=== PATIENT | female | born 1955 | race Caucasian/White ===

== ENCOUNTER 2021-08-19 16:20 | Emergency (ER) | payer OTHER ==
--- NOTE | 2021-08-19 16:56 | ED Physician Documentation ---
PD HPI FOCAL NEURO - Stated complaint Stated Complaint: HILLMAN/TINGLE IN HANDS - Chief complaint Chief Complaint: Neuro - History obtained from History obtained from: Patient - Additional information Additional information: 66-year-old woman who has hypertension and hypercholesterolemia, hypothyroidism and history of migraines started to feel like her legs were numb and she could not coordinate anything at around 11 AM this morning. Subsequently developed slurred speech, some word finding difficulties, a combination of vertigo and disequilibrium and could not walk. It is followed by headache although certainly not the worst of her life. Feeling better but not resolved now. Recently had an episode of diplopia in December of last year and subsequently had a work-up and was found to have what I presume was a PFO based on her description. Review of Systems Ten Systems: 10 systems reviewed and negative Constitutional: denies: Fever, Chills Nose: denies: Rhinorrhea / runny nose Cardiac: denies: Chest pain / pressure, Palpitations Respiratory: denies: Dyspnea, Cough PD PAST MEDICAL HISTORY - Present Medications Home Medications: Ambulatory Orders Medication Instructions Recorded Confirmed Levothyroxine [Synthroid] 25 mcg PO DAILY 08/20/21 08/20/21 Pravastatin [Pravachol] 10 mg PO DAILY 08/20/21 08/20/21 Rivaroxaban [Xarelto] 20 mg PO DAILY #30 tablet 08/20/21 - Allergies Allergies/Adverse Reactions: Allergies Allergy/AdvReac Type Severity Reaction Status Date / Time amoxicillin [From Augmentin] Allergy Unknown Verified 08/19/21 16:33 clavulanic acid Allergy Unknown Verified 08/19/21 16:33 [From Augmentin] iodine Allergy Unknown Verified 08/19/21 16:33 metronidazole [From Flagyl] Allergy Unknown Verified 08/19/21 16:33 PD ED PE NORMAL - Vitals Vital signs reviewed: Yes - General General: Alert and oriented X 3, No acute distress - HEENT HEENT: PERRL, EOMI - Neck Neck: Supple, no meningeal sign, No bony TTP - Cardiac Cardiac: RRR, No murmur - Respiratory Respiratory: No respiratory distress, Clear bilaterally - Abdomen Abdomen: Soft, Non tender - Back Back: No CVA TTP, No spinal TTP - Derm Derm: Normal color, Warm and dry - Extremities Extremities: No deformity, No tenderness to palpate, No edema, No calf tenderness / cord - Neuro Neuro: Alert and oriented X 3, No motor deficit, No sensory deficit, Normal speech, Other (NIHSS zero) Eye Opening: Spontaneous Motor: Obeys Commands Verbal: Oriented GCS Score: 15 - Psych Psych: Normal mood, Normal affect Results - Vitals Vitals: Vital Signs - 24 hr 08/19/21 08/19/21 08/19/21 16:26 18:32 20:03 Temperature 37 C Heart Rate 83 79 71 Respiratory 17 16 14 Rate Blood Pressure 148/91 H 144/90 H 154/98 H O2 Saturation 97 99 98 08/19/21 08/20/21 08/20/21 22:00 00:00 02:00 Temperature 36.9 C Heart Rate 82 70 68 Respiratory 20 17 15 Rate Blood Pressure 148/88 H 144/85 H 116/67 O2 Saturation 97 96 96 08/20/21 08/20/21 08/20/21 04:00 06:00 08:57 Temperature Heart Rate 64 65 72 Respiratory 20 14 22 Rate Blood Pressure 96/58 L 119/87 H 139/88 H O2 Saturation 98 96 99 08/20/21 10:00 Temperature Heart Rate 77 Respiratory 17 Rate Blood Pressure 129/94 H O2 Saturation 95 Oxygen O2 Source Room air - EKG (time done) 1702 Rate: Rate (enter#) (74) Rhythm: NSR [place]: Normal Intervals: RBBB QRS: Normal Ischemia: Normal ST segments. No: ST elevation c/w ischemia, ST depression Compare to prior EKG: Old EKG unavailable Computer interpretation: Agree with computer - Labs Labs: Laboratory Tests 08/19/21 08/19/21 08/19/21 16:58 16:59 16:59 WBC 7.5 RBC 4.11 L Hgb 13.2 Hct 40.0 MCV 97.3 MCH 32.1 H MCHC 33.0 RDW 13.7 Plt Count 200 MPV 11.0 H Neut # (Auto) 4.7 Lymph # (Auto) 2.2 [place] # (Auto) 0.6 Eos # (Auto) 0.1 Baso # (Auto) 0.0 Absolute Nucleated RBC 0.00 Nucleated RBC % 0.0 PT 10.9 INR 1.0 Sodium Potassium Chloride Carbon Dioxide Anion Gap BUN Creatinine Estimated GFR (MDRD) Glucose POC Whole Bld Glucose 133 H Calcium Nasal Adenovirus (PCR) Nasal B. parapertussis DNA (PCR) Nasal Coronavir 229E PCR Nasal Coronavir HKU1 PCR Nasal Coronavir NL63 PCR Nasal Coronavir OC43 PCR Nasal Enterovir/Rhinovir PCR Nasal Influenza B PCR Nasal Influenza A PCR Nasal Parainfluen 1 PCR Nasal Parainfluen 2 PCR Nasal Parainfluen 3 PCR Nasal Parainfluen 4 PCR Nasal RSV (PCR) Nasal B.pertussis DNA PCR Nasal C.pneumoniae (PCR) Vin Human Metapneumo PCR Nasal M.pneumoniae (PCR) Nasal SARS-CoV-2 (PCR) 08/19/21 08/19/21 18:51 21:00 WBC RBC Hgb Hct MCV MCH MCHC RDW Plt Count MPV Neut # (Auto) Lymph # (Auto) [place] # (Auto) Eos # (Auto) Baso # (Auto) Absolute Nucleated RBC Nucleated RBC % PT INR Sodium 138 Potassium 3.7 Chloride 104 Carbon Dioxide 27 Anion Gap 7.0 BUN 15 Creatinine 0.6 Estimated GFR (MDRD) 101 Glucose 107 H POC Whole Bld Glucose Calcium 8.8 Nasal Adenovirus (PCR) NOT DETECTED Nasal B. parapertussis DNA (PCR) NOT DETECTED Nasal Coronavir 229E PCR NOT DETECTED Nasal Coronavir HKU1 PCR NOT DETECTED Nasal Coronavir NL63 PCR NOT DETECTED Nasal Coronavir OC43 PCR NOT DETECTED Nasal Enterovir/Rhinovir PCR NOT DETECTED Nasal Influenza B PCR NOT DETECTED Nasal Influenza A PCR NOT DETECTED Nasal Parainfluen 1 PCR NOT DETECTED Nasal Parainfluen 2 PCR NOT DETECTED Nasal Parainfluen 3 PCR NOT DETECTED Nasal Parainfluen 4 PCR NOT DETECTED Nasal RSV (PCR) NOT DETECTED Nasal B.pertussis DNA PCR NOT DETECTED Nasal C.pneumoniae (PCR) NOT DETECTED Vin Human Metapneumo PCR NOT DETECTED Nasal M.pneumoniae (PCR) NOT DETECTED Nasal SARS-CoV-2 (PCR) NOT DETECTED - Rads (name of study) CTA Head/neck Radiology: EMP read contemporaneously (NAD) PD MEDICAL DECISION MAKING - ED course ED course: 66-year-old woman with risk factors for thromboembolic disease/stroke including hypertension and hyperlipidemia as well as a PFO presents with symptoms that are concerning for a posterior CVA. She presents outside of the window for consideration for thrombolytics. CT angiography of the head and neck were negative. She her symptoms improved but did not go away while in the emergency department and I called for admission for observation for MRI but was notified that the hospital is full. Unfortunately all of the other hospitals in [facility] also apparently full so unfortunately she will board in the emergency department pending an MRI in the morning. Update: 1:21 PM August 20. MRI done showing some white matter changes and volume loss but no acute lesions. She still mildly symptomatic but wonders if that might have just been from standing the night in the emergency department. My partner had spoken with her loading supervisor before my shift started who recommended starting aspirin and a DOAC given the known PFO pending follow-up. It sounds like he is planning to refer her to someone for consideration for PFO closure. Departure - Departure Disposition: 01 Home, Self Care Clinical Impression: TIA (transient ischemic attack), PFO (patent foramen ovale) Condition: Good Record reviewed to determine appropriate education?: Yes Instructions: ED Transient Ischemic Attack Prescriptions: Rivaroxaban [Xarelto] 20 mg PO DAILY #30 tablet Comments: Take a baby aspirin a day and follow-up with your loading supervisor. As discussed he is considering referring you for a closure of your PFO. I sent your prescription electronically to the [facility] community pharmacy at the corner of [facility] [address] here in [place]. Your loading supervisor may also want to more closely manage your blood pressure and cholesterol.
[2021-08-19 17:02] LABS: BASOPHILS % (AUTO) 0.4 %; EOSINOPHILS # (AUTO) 0.1 10^3/uL (0.0-0.7); EOSINOPHILS % (AUTO) 0.7 %; HGB - HEMOGLOBIN 13.2 g/dL (12.0-16.0); LYMPHOCYTES # (AUTO) 2.2 10^3/uL (1.5-3.5); MEAN CORPUSCULAR HEMOGLOBIN 32.1 pg (27.0-31.0); MEAN CORPUSCULAR VOLUME 97.3 fL (81.0-99.0); MONOCYTES # (AUTO) 0.6 10^3/uL (0.0-1.0); MONOCYTES % (AUTO) 7.3 %; NEUTROPHILS # (AUTO) 4.7 10^3/uL (1.5-6.6); NEUTROPHILS % (AUTO) 62.5 %; PLT - PLATELET COUNT 200 10^3/uL (130-450); RED BLOOD COUNT 4.11 10^6/uL (4.20-5.40); RED CELL DISTRIBUTION WIDTH 13.7 % (12.0-15.0); WHITE BLOOD COUNT 7.5 x10^3/uL (4.8-10.8)
[2021-08-19] MEDS ORDERED: METOCLOPRAMIDE 10 MG/2 ML VIAL IVP STA (17:05)
[2021-08-19 17:10] LABS: PT - PROTHROMBIN TIME 10.9 secs (9.9-12.6)
[2021-08-19] MEDS ORDERED: iohexoL-300 100 ML VIAL ONE (18:08)
[2021-08-19 19:04] LABS: CALCIUM 8.8 mg/dL (8.5-10.3); CREATININE 0.6 mg/dL (0.4-1.0); POTASSIUM 3.7 mmol/L (3.5-5.0)
[2021-08-19] MEDS ORDERED: iohexoL-300 100 ML VIAL IVP ONE (19:33)
--- NOTE | 2021-08-19 20:20 | CT Report ---
PROCEDURE: ANGIO HEAD W/WO INDICATIONS: sx of posterior cva CONTRAST: IV CONTRAST: Optiray 320 ml: 80 PO CONTRAST: *NO PO CONTRAST TECHNIQUE: Precontrast 4.5 mm thick angled axial sections acquired from the foramen magnum to the vertex. Afte r the administration of intravenous contrast, 1 mm thick sections acquired through the [place] of [place] is. Postcontrast 4.5 mm thick sections then re-acquired from the foramen magnum to the vertex. 3-di mensional kqlmdwx-yugufpjkp-ovgerlfcuy (MIP) and/or volume rendering reformats were acquired of the c entral intracranial vasculature. For radiation dose reduction, the following was used: automated ex posure control, adjustment of mA and/or kV according to patient size. COMPARISON: None FINDINGS: Image quality: Excellent. Anterior circulation: Intracranial internal carotid arteries are normal in size and flow. The flow within the paired anterior cerebral arteries is normal and symmetric. The flow within the middle cer ebral arteries is normal and symmetric. The anterior communicating artery is seen. No aneurysms are seen. Posterior circulation: Visualized portions of the vertebral arteries demonstrate normal caliber, and join to form a normal appearing basilar artery. Flow within the posterior cerebral arteries is norm al and symmetric. No aneurysms are seen. Dural sinuses demonstrate normal postcontrast enhancement. CSF spaces: Ventricles are normal in size and shape. Basal cisterns are patent. No extra-axial flu id collections. Brain: No midline shift. No intracranial bleeds or masses. [place]-white matter interface appears int act. Skull and face: Calvarium and facial bones appear intact, without suspicious lesions. Sinuses: Visualized sinuses and mastoids are clear. IMPRESSION: No acute intracranial disease process. No large vessel occlusion, hemodynamically significant vascular stenosis, vascular dissection or aneu rysm. Reviewed by: Mary Lieberman MD, PhD on 08/19/2021 8:19 PM PDT Approved by: Mary Lieberman MD, PhD on 08/19/2021 8:19 PM PDT Station ID: [id number]
--- NOTE | 2021-08-19 20:25 | CT Report ---
PROCEDURE: ANGIO NECK W INDICATIONS: sx of posterior cva CONTRAST: IV CONTRAST: Optiray 320 ml: 80 PO CONTRAST: *NO PO CONTRAST TECHNIQUE: After the administration of intravenous contrast, 1.5 mm axial sections acquired from the aortic arch to the [place] of [place]. Coronal 3-D maximum intensity projection (MIP) and/or volume rendering ref ormats were then performed. For radiation dose reduction, the following was used: automated exposur e control, adjustment of mA and/or kV according to patient size. COMPARISON: None. FINDINGS: Image quality: Excellent. Carotid system: The great vessels demonstrate a conventional anatomy as they arise from the aortic a rc. The origins of the common carotid arteries appear patent. The common carotid arteries demonstr ate normal calibers and courses. The bifurcation regions appear normal bilaterally. The internal ca rotid arteries demonstrate normal caliber and course. Minimal atherosclerotic plaque noted in the [place] of the left internal carotid artery which does not cause measurable stenosis. Posterior circulation: The origins of the vertebral arteries appear patent. The more superior porti ons of the vertebral arteries demonstrate normal course and caliber. They join to form a normal appe aring basilar artery. Soft tissues: Visualized neck soft tissues demonstrate no suspicious abnormalities. The thyroid is normal in size and there are no incidental findings. Bones: No suspicious bony lesions. Spine degenerative disc disease and facet arthropathy are noted. Visualized cervical spine appears normally aligned. IMPRESSION: No large vessel occlusion, vascular stenosis, vascular dissection or aneurysm. The estimate of stenosis included in the report of the imaging study was calculated using the NASCET method Reviewed by: Mary Lieberman MD, PhD on 08/19/2021 8:24 PM PDT Approved by: Mary Lieberman MD, PhD on 08/19/2021 8:24 PM PDT Station ID: [id number]
[2021-08-19] MEDS ORDERED: KETOROLAC 15 MG/ML VIAL IVP STA (20:51)
[2021-08-19] MEDS ORDERED: ASPIRIN 325 MG TABLET PO STA (20:51)
[2021-08-19] MEDS ORDERED: AMITRIPTYLINE 25 MG TABLET PO PRN (20:55)
[2021-08-19] MEDS ORDERED: LORazepam 1 MG TABLET PO STA (20:55)
[2021-08-19 23:12] LABS: B. PARAPERTUSSIS- RESP PCR PAN NOT DETECTED; B. PERTUSSIS- RESP PCR PANEL NOT DETECTED; C. PNEUMONIAE- RESP PCR PANEL NOT DETECTED; CORONAVIRUS 229E-RESP PCR NOT DETECTED; CORONAVIRUS HKU1-RESP PCR NOT DETECTED; CORONAVIRUS NL63-RESP PCR NOT DETECTED; CORONAVIRUS OC43-RESP PCR NOT DETECTED; HUMAN METAPNEUMOVIRUS NOT DETECTED; INFLUENZA A- RESP PCR PANEL NOT DETECTED; INFLUENZA B - RESP PCR PANEL NOT DETECTED; M. PNEUMONIAE- RESP PCR PANEL NOT DETECTED; PARAINFLUENZA VIRUS 1 NOT DETECTED; PARAINFLUENZA VIRUS 2 NOT DETECTED; PARAINFLUENZA VIRUS 3 NOT DETECTED; PARAINFLUENZA VIRUS 4 NOT DETECTED; RHINOVIRUS/ENTEROVIRUS NOT DETECTED; RSV- RESP PCR PANEL NOT DETECTED; SARS-CoV-2 -RESP PCR PANEL NOT DETECTED
[2021-08-20] MEDS ORDERED: AMITRIPTYLINE 25 MG TABLET PO PRN (07:29)
[2021-08-20] MEDS ORDERED: KETOROLAC 15 MG/ML VIAL IVP STA (08:48)
[2021-08-20] MEDS ORDERED: HYDROcod/ACETAM 5/325 MG TABLET PO STA (08:48)
[2021-08-20] MEDS ORDERED: ACETAMINOPHEN 325 MG TABLET PO STA (08:48)
--- NOTE | 2021-08-20 08:48 | ED Physician Documentation ---
ED Addendum - Addendum Addendum: 08/20/21 08:46I spoke with the patient this morning and she is feeling well. She states she was able to sleep with some help with medication last night. She feels okay this morning except for some headache. She states she has chronic daily headaches and occasional migraines. She did agree to some medications offered. Will give Tylenol Toradol and a small dose Dilaudid. She denies any focal deficits overnight or if feeling this morning. She states she had an episode of diplopia back in February and had a evaluation including stress test and echo by her certified physical therapist assistant at [facility]. She states this did show a "small hole in my heart". She has been on a baby aspirin. We will try to obtain results of the echo and stress test. At this point pending MRI hopefully sometime this morning. Physical exam she is awake alert and conversant. Normal conversation and language structure. No dysarthria. No focal weaknesses. Evaluation of the heart shows regular rhythm and subtle 1 out of 6 murmur anterior chest.
[2021-08-20] MEDS ORDERED: GADOBUTROL 7.5 MMOL/7.5 ML VIAL ONE (11:04)
--- NOTE | 2021-08-20 12:58 | MRI Report ---
PROCEDURE: Brain W/WO INDICATIONS: CVA sx, dizzy, dysequilibrium CONTRAST: IV CONTRAST: Gadavist ml: 7.5 TECHNIQUE: Noncontrast axial T1 spin echo, axial T2 fast spin echo, sagittal and axial FLAIR, coronal T2 fast sp in echo, axial gradient echo, axial diffusion and ADC through the brain. After the administration of contrast, axial and coronal T1 spin echo with fat saturation through the brain. COMPARISON: None. FINDINGS: Image quality: Excellent. CSF spaces: Basal cisterns are patent. No extra-axial fluid collections. Ventricles are normal in size and shape. Brain: No midline shift. No intracranial bleeds or masses. No abnormal intracranial enhancement. There is mild cerebral volume loss for age. There are mild periventricular and subcortical white mat ter chronic small vessel ischemic change. The brainstem appears normal. Diffusion-weighted images d emonstrate no acute ischemic insults. No chronic ischemic insults. Normal intravascular flow voids are present. Dural sinuses demonstrate normal postcontrast enhancement. Skull and face: Calvarial marrow is normal in signal. Orbits appear normal. Sinuses: Sinuses and mastoids appear clear. IMPRESSION: 1. No acute intracranial disease process. 2. No areas of acute or chronic infarction. 3. No abnormal intracranial mass or suspicious postcontrast enhancement. 4. Mild, diffuse cerebral volume loss. 5. Mild periventricular and subcortical white matter chronic microvascular ischemic change. Reviewed by: Mary Lieberman MD, PhD on 08/20/2021 12:56 PM PDT Approved by: Mary Lieberman MD, PhD on 08/20/2021 12:56 PM PDT Station ID: [id number]
[2021-08-20 13:26] VITALS: BP 138/87
[2021-08-20] MEDS ORDERED: GADOBUTROL 7.5 MMOL/7.5 ML VIAL IVP ONE (16:23)
== END 2021-08-20 13:54 | disposition home or self-care (01) ==
LOC: ED 16:20
DX: G45.9 Transient cerebral ischemic attack, unspecified (principal); Q21.1 Atrial septal defect; Z20.822 Contact with and (suspected) exposure to COVID-19
CPT/HCPCS: 36415; 70496; 70498; 70553; 80048; 85025; 85610; 87633; 93005; 96374; 96375; 96376; 99284; A9270; A9585; J2765; J8499; Q9967

== ENCOUNTER → 2021-08-19 | Outpatient (CLI) | payer OTHER | END | disposition critical access hospital (66) | LOC: EMS 16:03 | DX: R42 Dizziness and giddiness (principal); R20.0 Anesthesia of skin | CPT/HCPCS: A0425; A0429 ==